=== PATIENT | female | born 1995 | race African-American/Black ===

== ENCOUNTER 2024-11-28 10:49 | Outpatient (CLI) | payer OTHER, SELFPAY ==
--- NOTE | ~2024-11-28 | US_ITS ---
EXAMINATION: US OB <= 14 weeks fetus DATE: 11/28/2024 11:16 INDICATION: Uncertain dating of TECHNIQUE: Real-time pelvic ultrasound utilizing both a transvaginal and transabdominal probe was pe rformed. The interpreting radiologist was not present for the study. COMPARISON: None. FINDINGS: There is a single living fetus with heart rate of 145 beats per minute (bpm). The placenta is p osterior and appears potentially low-lying although the cervix is not clearly defined. The amniotic f luid volume is subjectively normal. The following biometric data were obtained: BPD: 3.1 cm -> 15 weeks 5 days [place]-rump length: 9.0 cm -> 14 weeks 6 days Femur length: 1.7 cm -> 15 weeks 1 days IMPRESSION: 1. Single living fetus with heart rate of 145 bpm. 2. Gestational age by ultrasound of 15 weeks 2 day(s) +/- 1 week and 0 day(s) with ultrasound estimat ed date of delivery (CL) of 05/20/2025. Please correlate with clinical information or earlier ultraso unds for most accurate CL. 3. Posterior placenta which appears low-lying although the region of the cervix is suboptimally visua lized. Reviewed, dictated and finalized at location B. [employer] IMPRESSION: 1. Single living fetus with heart rate of 145 bpm. 2. Gestational age by ultrasound of 15 weeks 2 day(s) +/- 1 week and 0 day(s) w ith ultrasound estimated date of delivery (CL) of 05/20/2025. Please correlate with clinical information or earlier ultrasounds for most accurate CL. 3. Posterior placenta which appears low-lying although the region of the cervix is suboptimally visualized.
== END 2024-11-28 10:50 | disposition home or self-care (01) ==
PROVIDERS: PCP Obstetrics & Gynecology Gynecology; Visit Provider Obstetrics & Gynecology Gynecology
DX: Z36.87 Encounter for antenatal screening for uncertain dates (principal)
CPT/HCPCS: 76801

== ENCOUNTER 2025-01-02 15:56 | Outpatient (CLI) | payer OTHER, SELFPAY ==
--- NOTE | ~2025-01-02 | US_ITS ---
EXAMINATION: US OB /maternal detail DATE: 01/05/2025 10:32 CDT INDICATION: Anatomy scan TECHNIQUE: Real-time transabdominal obstetric ultrasound. FINDINGS: 2 para 0 There is a single intrauterine gestation in vertex presentation. The placenta is fundal, with the tip of the placenta more than 8 cm from the cervix. cardiac activity and movement is noted with a heart rate of 147 beats per minute. Anatomic parameters are as follows The bladder is visualized and is unremarkable. A three-vessel cord is present. Cord insertion is clearly demonstrated to be on the midline of the abdomen on the submitted images. Bilateral kidneys are present, symmetric and without hydronephrosis. The anterior and posterior margins of the diaphragm are continuous. The cervical, thoracic and lumbar spines are covered in their entirety. choroid plexi are visualized, and unremarkable. Lateral ventricles are visualized measuring 7.1 and 7.3 mm, respectively. The cerebellum is visualized measuring 20.4 mm, and is sonographically unremarkable. The cisterna magna measures 3.8 mm in anterior to posterior dimension (normal measurement is 2 to 10 mm). The nuchal fold measures 4.1 mm (greater than 6 mm is considered abnormal). Cine of the four-chamber heart is visualized and is anatomic. Both the right and left ventricular outflow tracts are identified and are unremarkable. Limited views of the arms, hands, legs and feet were performed and appear grossly unremarkable. Evaluation of the upper lip and nose demonstrate continuity. The following biometric data were obtained: Biparietal diameter (BPD): 4.5 cm; head circumference (HC): 17 cm; abdominal circumference (AC): 13.8 cm; femur length (FL): 3.2 cm. These measurements are concordant. Estimated weight is 298.6 g +/- 45 g, which correlates with the 12th percentile when 05/25/2025 i s used as estimated date of delivery. As single measurements, these parameters are each equal to the following estimated gestational ages: BPD: 19 weeks 4 days. HC: 19 weeks 4 days. AC: 19 weeks 2 days. FL: 19 weeks 6 days. estimated gestational age based solely on measurements from this exam is 19 weeks 4 days +/- 1 week 3 days. IMPRESSION: Single intrauterine gestation with an approximate gestational age of 19 weeks and 4 days. Estimated d ue date by ultrasound is 05/25/2025. All components of the anatomy scan were visualized, and are unremarkable (as detailed above). Reviewed, dictated and finalized at location A. IMPRESSION: Single intrauterine gestation with an approximate gestational age of 19 weeks a nd 4 days. Estimated due date by ultrasound is 05/25/2025. All components of the anatomy scan were visualized, and are unremarkable (as de tailed above).
== END 2025-01-02 15:57 | disposition home or self-care (01) ==
LOC: MICIMG 15:58
PROVIDERS: PCP Obstetrics & Gynecology Gynecology; Visit Provider Obstetrics & Gynecology Gynecology
DX: Z36.9 Encounter for antenatal screening, unspecified (principal); Z3A.19 19 weeks gestation of pregnancy
CPT/HCPCS: 76805

== ENCOUNTER 2025-05-29 12:32 | Outpatient (RCR) | payer OTHER, SELFPAY ==
[2025-05-26 16:40] VITALS: BP 105/58; PULSE 80
[2025-05-28 16:13] VITALS: BP 106/40; PULSE 86
--- NOTE | ~2025-05-29 | US_ITS ---
EXAMINATION: US OB BPP wo non-stress DATE: 05/26/2025 17:42 INDICATION: Decreased movements TECHNIQUE: Real-time pelvic ultrasound was performed. The interpreting radiologist was not present for the study. COMPARISON: 01/02/2025. FINDINGS: There is a single living fetus in vertex presentation. The placenta is posterior. cardiac activity and movement are demonstrated. heart rate is 142 beats per minute (bpm). FRANCIA is normal measuring 15.9 cm. Biophysical profile performed by the technologist: breathing (30 sec sustained breathing in 30 minutes): 2 out of 2 movement (3 gross body movements in 30 minutes): 2 out of 2 tone (one episode of zmqyivu-hgbfnlasj-xayrcqv limb movement): 2 out of 2 Amniotic fluid pocket (2 cm): 2 out of 2 Total score: 8 out of 8 IMPRESSION: 1. Single living intrauterine in vertex presentation with heart rate of 142 bpm. 2. Normal placenta. 3. Biophysical profile 8 out of 8. Reviewed, dictated and finalized at location O.
--- NOTE | ~2025-05-29 | US_ITS ---
EXAMINATION: US OB BPP wo non-stress DATE: 05/29/2025 14:18 CDT INDICATION: Evaluate amniotic fluid index. Biophysical profile. TECHNIQUE: Real-time transabdominal obstetric ultrasound. FINDINGS: 05/26/2025 There is a single living fetus in vertex presentation. The placenta is posterior without placenta previa. cardiac activity and movement is noted with a heart rate of 137 beats per minute. FRANCIA is normal measuring 15.9 cm. Biophysical profile: breathin of 2 movement: 2 of 2 tone: 2 of 2 Amniotic flud pocket: 2 of 2 Total score: 8 of 8 IMPRESSION: 1. Single living intrauterine in vertex presentation. 2: Total biophysical profile score of 8/8. 3: Normal FRANCIA measures 15.9 cm. Reviewed, dictated and finalized at location O.
--- NOTE | 2025-05-29 14:18 | PC.NURSE ---
1415- RN notified Dr. Darrell Sánchez of BPP and FRANCIA results. RN notified MD that patient is scheduled again on Sunday. MD gave orders for d/c.
== END 2025-06-06 11:27 | disposition other institution (70) ==
LOC: ANHOBOP 12:32
PROVIDERS: Visit Provider Obstetrics & Gynecology Gynecology
DX: O36.8130 Decreased fetal movements, third trimester, not applicable or unspecified (principal); O48.0 Post-term pregnancy; Z3A.40 40 weeks gestation of pregnancy
CPT/HCPCS: 59025; 76819

== ENCOUNTER 2025-05-30 18:05 | Observation (INO) | payer OTHER, SELFPAY ==
--- OUTSIDE RECORDS SUMMARY | 2025-05-30 20:55 | XMS_ITS | Clinical Summary ---
Author Organization [facility] Address [facility] [place] [address] Care Team Providers Care Fire Supervisor Name Role Phone None, Provider MD Primary Care Provider Unavaila ble Allergies No known active allergies Medications cholecalciferol (VITAMIN D-[address]) 25 mcg Tab tablet Take 1 tablet (1,000 Units total) by mouth daily. Active MAGNESIUM OR Take 200 mg by mouth daily. Active Ovando 3 1000 MG Cap Take 1 g by mouth daily. Active zinc gluconate 50 MG Tab Take 1 tablet (50 mg total) by mouth daily. Active ferrous sulfate, 65 mg elemental, 325 (65 FE) MG tablet Take 1 tablet (325 mg total) by mouth daily with breakfast. Active vitamin, low iron, 27-0.8 mg tablet Take 1 tablet by mouth daily. Active Active Problems Problem Noted Date Diagnosed Date ([facility]) 05/21/2025 Estimated Date of Delivery Comme nts Yes 05/24/2025 Based on Other B asis Encounters Date Type Department Care Team Description 05/21/2025 4:00 PM CDT - 05/21/2025 5:15 PM CDT Emergency [facility] [place] [address] Raul Carbajal MD Discharge Disposition: Home or Self Care (Routine Discharge) 05/21/2025 Travel 03/21/2025 8:05 AM CDT - 03/21/2025 11:59 PM CDT Hospital Encounter [facility] [address] Lorrie Tran MD Discharge Disposition: Home or Self Care (Routine Discharge) 03/21/2025 Orders Only [facility] [address] Lorrie Tran MD 03/21/2025 Travel 03/14/2025 8:30 AM CDT - 03/14/2025 11:59 PM CDT Hospital Encounter [facility] [address] Lorrie Tran MD Discharge Disposition: Home or Self Care (Routine Discharge) 03/14/2025 [facility] [place] [address] Lorrie Tran MD 03/14/2025 Travel from Last 3 Months Social History Tobacco Use Types Packs/Day Years Used Date Smoking Tobacco: Never Assessed Estimated Date of Delivery Comme nts Yes 05/24/2025 Based on Other B asis Sex and Gender Information Value Date Recorded Sex Assigned at Female 11/18/2024 11:52 AM R&D ENGINEER Legal Sex Female 9:39 AM R&D ENGINEER Gender Identity Female 05/21/2025 4:20 PM CDT Sexual Orientation Straight 05/21/2025 4: 20 PM CDT Last Filed Vital Signs Vital Sign Reading Time Taken Comments Blood Pressure 112/68 05/21/2025 4:11 PM CDT Pulse 59 05/21/2025 5:10 PM CDT Temperature 37.1 C (98.7 F) 05/21/2025 4:15 PM CDT Respiratory Rate 16 05/21/2025 4:15 PM CDT Oxygen Saturation 99% 05/21/2025 4:15 PM CDT Inhaled Oxygen Concentration - - Weight 83 kg (183 lb) 05/21/2025 4:11 PM CDT Height 170.2 cm (5' 7) 05/21/2025 4:11 PM CDT Body Mass Index 28.66 05/21/2025 4:11 PM CDT Plan of Treatment Health Maintenance Due Date Last Done Comments Cervical Cancer Screening Pa p Smear (Age 21 to 29) Every 3 Years 1996 Cervical Cancer Screening 1996 Annual Physical 12/07/1999 Hepatitis C 2014 DTaP, Tdap and Td Vaccines ( 1 - Tdap) 12/07/2015 Hepatitis B Vaccines (1 of 3 - 19+ 3-dose series) 12/07/2015 HPV Vaccines (1 - 3-dose SCD M series) 12/07/2023 COVID-19 Vaccine ( - 2023-2 5 season) 2024 Meningococcal B Vaccine Aged Out No l onger eligible based on patient's age to complete this topic Meningococcal Vaccine Aged Out No matt alfredo eligible based on patient's age to complete this topic Pneumococcal Vaccine: Pediat rics (0 to 5 Years) and At-Risk Patients (6 to 49 Years) Aged Out No longer eligible b ased on patient's age to complete this topic RSV Immunization or 60+ Years (No Doses Required) Completed RSV Immunizations Under 20 Months Aged Out No longer eligible based on patient's age to complete this topic Procedures Procedure Name Priority Date/Time Associated Diagnosis Comments NONSTRESS TEST STAT 05/21/2025 5:12 PM CDT HC URINALYSIS AUTO W/O MICRO STAT 05/21/2025 4:46 PM CDT HC GLUCOSE TOLERANCE ADDL SPEC TIMED 03/21/2025 12:18 PM CDT GLUCOSE TOLERANCE 2 HR OB TIMED 03/21/2025 11:20 AM CDT GLUCOSE TOLERANCE 1 HR OB TIMED 03/21/2025 10:19 AM CDT GLUCOSE BLOOD, QNT Routine 03/21/2025 8: 35 AM CDT Abnormal glucose in , antepartum (HHS/HCC) GLUCOSE, GESTATIONAL SCREEN Routine 03/14/2025 9:40 AM CDT care ([facility]) SYPHILIS AB (DIAGNOSTIC) WITH CASCADING REFLEX Routine 03/14/2025 9:40 AM CDT care ([facility]) VITAMIN D, 25 OH Routine 03/14/2025 9:40 AM CDT care ([facility]) HIV 1 ANTIGEN(S), WITH HIV-1 AND HIV-2 ANTIBODIES Routine 03/14/2025 9:40 AM CDT care ([facility]) HEMOGLOBIN AND HEMATOCRIT Routine 03/14/2025 9:40 AM CDT care ([facility]) from Last 3 Months Results * nonstress test (05/21/2025 5:12 PM CDT) Narrative Raul Carbajal MD - 05/21/2025 5:12 PM CDT Raul Carbajal MD 05/21/2025 5:13 PM Non-Stress Test Indication: decreased movement Gestational Age: 39w4d Baseline: 130 bpm Variability: moderate Accelerations: present Decelerations: absent TOCO: occasional/rare contraction Interpretation: reassuring/reactive NST Recommendation(s): OK for discharge, feeling FM after zofran & hydration PO Comments: na Start: 1608 End: 1710 I personally reviewed the non-stress test strips RAUL CARBAJAL MD Raul Carbajal MD OB GYNE ORDERABLES Final R esult * URINALYSIS (05/21/2025 4:46 PM CDT) SPECIMEN TYPE URINE CLEAN CATCH 05/21/2025 4:46 PM CDT [facility] COLOR (U) LIGHT YELLOW 05/21/2025 4:58 PM CDT [facility] TRANSPARENCY CLEAR 05/21/2025 4:58 PM CDT [facility] SPECIFIC GRAVITY (U) 1.017 1.001 - 1.030 05/21/2025 4:58 PM CDT [facility] U PH 7.5 5.0 - 9.0 05/21/2025 4:58 PM CDT [facility] LEUKOCYTES (U) NEGATIVE NEGATIVE 05/21/2025 4:58 PM CDT [facility] NITRITES NEGATIVE NEGATIVE 05/21/2025 4:58 PM CDT [facility] PROTEIN RANDOM (U) NEGATIVE <30 MG/DL 05/21/2025 4:58 PM CDT [facility] GLUCOSE (U) NORMAL NORMAL MG/DL 05/21/2025 4:58 PM CDT [facility] KETONES MG/DL (U) NEGATIVE NEGATIVE MG/DL 05/21/2025 4:58 PM CDT [facility] UROBILINOGEN NORMAL NORMAL MG/DL 05/21/2025 4:58 PM CDT [facility] BILIRUBIN (U) NEGATIVE NEGATIVE MG/DL 05/21/2025 4:58 PM CDT [facility] BLOOD (U) NEGATIVE NEGATIVE 05/21/2025 4:58 PM CDT [facility] URINE SPECIMEN OBTAINED BY CLEAN CATCH PROCEDURE / Unknown 05/21/2025 4:46 PM CDT us Raul Carbajal MD URINE ORDERABLES Final Res ult [facility] [address] [place] [address], * GLUCOSE TOLERANCE TEST, 3HR OB (03/21/2025 12:18 PM CDT) GLUCOSE 3 HR 92 mg/dL 03/21/2025 12:39 PM CDT [facility] 03/21/2025 12:1 8 PM CDT us Lorrie Tran MD LABORATORY Final Res ult [facility] [address] [place] [address], [place] [phone] * GLUCOSE TOLERANCE 2 HR OB (03/21/2025 11:20 AM CDT) GLUCOSE 2 HR 118 mg/dL 03/21/2025 11:42 AM CDT [facility] 03/21/2025 11:2 0 AM CDT Lorrie Tran MD LABORATORY Final Res ult Performing Organization Address City/[facility]/ZIP Co de Phone Number [facility] [address] [place] [address], [place] [phone] * GLUCOSE TOLERANCE 1 HR OB (03/21/2025 10:19 AM CDT) GLUCOSE 1 HR 164 mg/dL 03/21/2025 11:06 AM CDT [facility] 03/21/2025 10:1 9 AM CDT Lorrie Tran MD LABORATORY Final Res ult [facility] [address] [place] [id number], [place] [phone] * GLUCOSE BLOOD, QNT (03/21/2025 8:35 AM CDT) GLUCOSE 84 70 - 99 MG/DL 03/21/2025 9:12 AM CDT [facility] 03/21/2025 8:35 AM CDT us Lorrie Tran MD LABORATORY Final Res ult Performing Organization Address City/[facility]/ZIP Co de Phone Number [facility] [address] [place] [address], * SYPHILIS AB (DIAGNOSTIC) WITH CASCADING REFLEX (03/14/2025 9:40 AM CDT) SYPHILIS IGG IGM AB NON-REACTI VE NON-REACTI VE 03/14/2025 12:13 PM CDT [facility] Comment: No serologic evidence of syphilis. No follow-up necessary unless clinically indicated. 03/14/2025 9:40 AM CDT Lorrie Tran MD LABORATORY Final Res ult Performing Organization Address [facility] Co de Phone Number [facility] [address] [place] [phone], * (ABNORMAL) GLUCOSE, GESTATIONAL SCREEN (03/14/2025 9:40 AM CDT) Pathologist [facility] AM[place] GIVEN 50 g 03/14/2025 11:37 AM CDT [facility] GLUCOSE 1 HOUR POST DOSE 176(H) <140 mg/dL 03/14/2025 11:37 AM CDT [facility] 03/14/2025 9:40 AM CDT Lorrie Tran MD LABORATORY Final Res ult Performing Organization Address City/[facility]/ZIP Co de Phone Number [facility] [address] [place] [address], * HIV 1 ANTIGEN(S), WITH HIV-1 AND HIV-2 ANTIBODIES (03/14/2025 9:40 AM CDT) Pathologist [facility] HIV 1/2 AB+ HIV1 P24 AG NON-REACTI VE NON-REACTI VE 03/14/2025 12:28 PM CDT [facility] 03/14/2025 9:40 AM CDT Lorrie Tran MD LABORATORY Final Res ult Performing Organization Address City/[facility]/ZIP Co de Phone Number [facility] [address] [place] [address], [place] [phone] * (ABNORMAL) HEMOGLOBIN AND HEMATOCRIT (03/14/2025 9:40 AM CDT) Pathologist [facility] HGB 11.9(L) 12.0 - 16.0 G/DL 03/14/2025 11:07 AM CDT [facility] HCT 35.4(L) 38.0 - 48.0 % 03/14/2025 11:07 AM CDT [facility] 03/14/2025 9:40 AM CDT Lorrie Tran MD LABORATORY Final Res ult Performing Organization Address [facility] Co de Phone Number [facility] [address] [place] [address], [place] [phone] * VITAMIN D, 25 OH (03/14/2025 9:40 AM CDT) VITAMIN D 25 HYDROXY S/P/B 41 30 - 100 NG/ML 03/14/2025 12:13 PM CDT [facility] Comment: INTERPRETATION DEFICIENT <20 INSUFFICIENT 20-29 SUFFICIENT 30-100 03/14/2025 9:40 AM CDT Lorrie Tran MD LABORATORY Final Res ult [facility] [address] [place] [address], from Last 3 Months Insurance Care Teams Fire Supervisor Relationship Specialty Start Date End Date None, Provider, MD PCP - General UNKNOWN PHYSICIAN SPECIALTY 03/14/25
--- NOTE | 2025-06-02 03:09 | PM.OBTRLD ---
OB - Triage/Final Diagnosis Visit Information Reason for evaluation: threatened labor Comments/Additional reasons for admission: I have assessed the risk for this patient, Aissatou Cat, and determined that she would benefit from observation care.
== END 2025-05-30 22:33 | disposition home or self-care (01) ==
PROVIDERS: Admitting Provider Obstetrics & Gynecology; Visit Provider Obstetrics & Gynecology
DX: O47.1 False labor at or after 37 completed weeks of gestation (principal); Z3A.40 40 weeks gestation of pregnancy
CPT/HCPCS: G0378; G0379

== ENCOUNTER 2025-05-31 04:29 | Inpatient (IN) | payer OTHER, SELFPAY ==
[2025-05-31] VITALS (65 sets, daily range): BP systolic 91–140; BP diastolic 55–99; PULSE 62–182; RESP 16; TEMP 36.4–37.1; O2SAT 96–100; BMI 27.9
[2025-05-31 05:14] LABS: Hematocrit 41.3 % (37.0-47.0); Hemoglobin 13.8 g/dL (12.0-15.0); Immature Granulocyte Percent A 0.6 % (0-0.5); Lymphocytes Absolute Auto 2.66 K/mm3 (0.9-3.2); Mean Corpuscular HGB Conc 33.4 g/dl (32-36); Mean Corpuscular Hemoglobin 32.9 pg (26-34); Mean Corpuscular Volume 98.6 fl (80-100); Nucleated Red Blood Cells Absolute Auto 0.000 K/mm3 (0.0-0.012); Nucleated Red Blood Cells Perc 0.0 % (0.0-0.2); Platelet Count Result 147 k/mm3 (150-375); Red Blood Count 4.19 M/mm3 (4.2-5.4); White Blood Count 14.2 K/mm3 (4.5-10.0)
[2025-05-31] MEDS: LACTATED RINGERS 1,000 ML 125 ML IV CONT (05:17)
[2025-05-31] MEDS: ONDANSETRON INJ 4 MG/2 ML VIAL IV PUSH ×2 (05:18→10:52)
[2025-05-31] MEDS: FAMOTIDINE 20 MG/2 ML VIAL IV PUSH (05:18)
--- NOTE | 2025-05-31 05:20 | LDADM ---
This patient, Aissatou Cat, was admitted to Labor/Delivery/Recovery 105 on 05/31/25 at 04:29. Plans for labor, pain management and were discussed with patient. Patient/family oriented to hospital policies and general routines including ID bracelet, bed and alarms, visiting hours, pain management, procedures, bathroom and other care routines, personal items, smoking policy, room service/diet and guest tray routines, infant security routines, and visiting hours. Patient/Family are encouraged to report perceived risks to care and to ask questions if they do not understand what they are told or what they should do. See OBIX for further documentation.
[2025-05-31 06:03] LABS: Syphilis IgG/IgM Antibody Non-Reactive (Nonreactive)
--- NOTE | 2025-05-31 06:12 | PM.IMHP ---
H&P: HPI History of Present Illness Date/Time: 05/31/25 06:12 Chief Complaint: Labor at 41 weeks Narrative: This is a 29-year-old 2 para 0 whose last menstrual period gives an EDC of 05/24/2025. She has apparently had an unremarkable . She is 41 weeks today. She was then oral air and early labor went home and has returned. She is negative for group B strep passed her diabetic Review of Systems Review of Systems: All systems reviewed & are unremarkable except as noted in HPI and below PMFSH Family History Family History Other No pertinent family history Social History Social History Smoking status: Former smoker Tobacco type: cigarettes and e-cigarettes/vaping Second hand tobacco smoke exposure: No Substance use: never Lack of Transportation: No Lack of Food: Never True Current Housing: I Have Housing Concerned About Future Housing: No Difficulty Paying Gas/Electric Bills: No Difficulty Paying for Meds: No Currently Unemployed: No Education: High School Diploma/GED Difficulty w/ Childcare or Family Care: No Spiritual care concerns: No Meds Home Medications and Allergies Home Medications ?Medication ?Instructions ?Recorded ?Confirmed ?Type vit no.95-ferrous 1 tablet PO DAILY 04/25/25 05/31/25 History fumarate 28 mg-folic acid 800 mcg tablet () Allergies Allergy/AdvReac Type Severity Reaction Status Date / Time No Known Allergies Allergy Verified 05/31/25 05:42 Vital Signs Vital Signs - 24 hr 05/31/25 04:45 Pulse Rate 85 Blood Pressure 120/84 Exam Const: General: cooperative, healthy appearing and comfortable Nutritional Appearance: average body habitus Orientation/consciousness: oriented to person, oriented to place and oriented to time Resp: Effort & Inspection: normal respiratory effort Cardio: Rate: regular rate Rhythm: regular rhythm Heart sounds: S1 normal heart sound present and S2 normal heart sound present GI: Inspection: normal to inspection (Gravid soft uterus) : External Female Exam: normal external appearance Speculum Exam - Vagina: normal appearance of the vagina Speculum Exam - Cervix: normal appearance of the cervix (Cervix 3/100/2. AROM with meconium. FHTs reassuring) H&P: Results Labs Labs: Short CBC 05/31/25 Range/Units 05:08 WBC 14.2 H (4.5-10.0) K/mm3 Hgb 13.8 (12.0-15.0) g/dL Hct 41.3 (37.0-47.0) % Plt Count 147 L (150-375) k/mm3 Assessment and Plan Assessment and plan (1) Term : Code(s): Z34.90 - Encounter for supervision of normal , unspecified, unspecified trimester Status: Acute Plan Spontaneous vaginal delivery expected. She is an epidural candidate. Peds will be made of a meconium
--- NOTE | 2025-05-31 06:22 | WPDANESEPP ---
Anes - Eval Pre Procedure Procedure: Labor epidural Date/Time: 05/31/25 06:22 Surgeon: Chelsea Preop Diagnosis: Abdominal pain with contractions Pre Op Diagnosis: Labor Patient Data Age: 29 Gender: F Height: 1.7 m Weight: 81 kg Last Vital Signs Pulse 85 05/31/25 04:45 BP 120/84 05/31/25 04:45 Allergies Allergy/AdvReac Type Severity Reaction Status Date / Time No Known Allergies Allergy Verified 05/31/25 05:42 Home Medications ?Medication ?Instructions ?Recorded ?Confirmed ?Type vit no.95-ferrous 1 tablet PO DAILY 04/25/25 05/31/25 History fumarate 28 mg-folic acid 800 mcg tablet () Laboratory Tests 05/31/25 05:08 WBC 14.2 H K/mm3 (4.5-10.0) RBC 4.19 L M/mm3 (4.2-5.4) Hgb 13.8 g/dL (12.0-15.0) Hct 41.3 % (37.0-47.0) MCV 98.6 fl (80-100) MCH 32.9 pg (26-34) MCHC 33.4 g/dl (32-36) RDW 12.8 % (11.5-14.5) Plt Count 147 L k/mm3 (150-375) MPV 10.8 H fl (7.4-10.4) Immature Gran % (Auto) 0.6 H % (0-0.5) Neut % (Auto) 72.6 % (45.5-73.1) Lymph % (Auto) 18.7 % (18.3-44.2) [place] % (Auto) 5.8 % (2.6-8.5) Eos % (Auto) 1.9 % (0-4.4) Baso % (Auto) 0.4 % (0.2-1.2) Lymph # (Auto) 2.66 K/mm3 (0.9-3.2) [place] # (Auto) 0.8 H K/mm3 (0.1-0.6) Eos # (Auto) 0.3 K/mm3 (0-0.3) Baso # (Auto) 0.1 K/mm3 (0.0-0.1) Abs Immat Gran (auto) 0.09 H K/mm3 (0.00-0.031) Absolute Neuts (auto) 10.3 H K/mm3 (1.3-6.7) Absolute Nucleated RBC 0.000 K/mm3 (0.0-0.012) Nucleated RBC % 0.0 % (0.0-0.2) Syphilis IgG/IgM Ab Non-reactive (Nonreactive) Blood Type O Positive Antibody Screen Negative : gestational age HCG: positive Patient hx anesthesia problems: none Family hx anesthesia problems: none Results Review: All pre-operative results and documents have been reviewed as part of the pre-operative evaluation. FORMERLY [facility], [facility] Past Medical History Medical History (Updated 05/31/25 @ 06:22 by Rene León Jr., CRNA) Term Family History Family History Other No pertinent family history Social History Social History Smoking status: Former smoker Tobacco type: cigarettes and e-cigarettes/vaping Second hand tobacco smoke exposure: No Substance use: never Lack of Transportation: No Lack of Food: Never True Current Housing: I Have Housing Concerned About Future Housing: No Difficulty Paying Gas/Electric Bills: No Difficulty Paying for Meds: No Currently Unemployed: No Education: High School Diploma/GED Difficulty w/ Childcare or Family Care: No Spiritual care concerns: No Exam Day of Procedure 05/31/25 06:22 Patient weight: overweight
[2025-05-31] MEDS: OXYTOCIN 30 UNITS/NS 500 ML 30 UNITS/500 ML BAG 999 UNITS IV CONT (13:58)
--- NOTE | 2025-05-31 14:08 | P.PCNOB_ITS ---
OB - Vaginal Delivery Note Procedure Delivery date: 05/31/25 Induction method: None Delivery augmentation: Rupture of Membranes Delivery monitor: External FHT and External Uterine Route of delivery: Episiotomy description: None Laceration Description: Perineal - 2nd Degree Delivery repair: vicryl Specimen: No Quantitative Blood Loss (ml): 62 Anesthesia type: Local Disposition: Floor Complications: No immediate complications Narrative: Patient 40 weeks gestation labor artificial rupture membranes a she is 3-4 she progressed 1st do stage of labor was unable to get an epidural and delivered ba by was not in attendance. Placenta delivered intact spontaneously 20 of Pitocin placed IV to help firm uterus after inspecting vagina f second-degree laceration was noted perineum closed with running Vicryl QBL was 62cc all sponge,, instrument counts were correct. Immediate complications Baby Date of : 05/31/25 Time of : 13:40 Gestational Age by Date: 41 Infant gender: Female presentation: vertex Placenta delivery description: Spontaneous Cord Vessel Description: 3 Vessels score one minute: 8 score five minutes: 9
--- NOTE | 2025-05-31 14:10 | P.DS_ITS ---
DS: Admitting Diagnosis Discharge Date 06/01/2025 Admitting Diagnosis Term DS: Discharge Diagnosis Discharge Diagnosis (1) Term : Code(s): Z34.90 - Encounter for supervision of normal , unspecified, unspecified trimester Status: Acute DS: Summary Hospital Course Reason for hospitalization: Patient admitted 41 weeks gestation in active labor and underwent spontaneous vaginal delivery Hospital Course: Patient's hospital course unremarkable. Straight afebrile. She was up, voiding without difficulty, ambulated, and generally without complaints. Time Spent with Patient Time attestation: Total time spent providing and/or coordinating discharge services: Exam Const: General: cooperative, healthy appearing and comfortable Nutritional Appearance: average body habitus Orientation/consciousness: oriented to person, oriented to place and oriented to time Resp: Effort & Inspection: normal respiratory effort Cardio: Rate: regular rate Rhythm: regular rhythm Heart sounds: S1 normal heart sound present and S2 normal heart sound present GI: Inspection: normal to inspection (Gravid soft uterus) : External Female Exam: normal external appearance Speculum Exam - Vagina: normal appearance of the vagina Speculum Exam - Cervix: normal appearance of the cervix (Cervix 3/100/2. AROM with meconium. FHTs reassuring) DS: Data Data Completed and Pending Labs on day of discharge: Labs from last 24 hours 05/31/25 05:08 WBC 14.2 H RBC 4.19 L Hgb 13.8 Hct 41.3 MCV 98.6 MCH 32.9 MCHC 33.4 RDW 12.8 Plt Count 147 L MPV 10.8 H Immature Gran % (Auto) 0.6 H Neut % (Auto) 72.6 Lymph % (Auto) 18.7 [place] % (Auto) 5.8 Eos % (Auto) 1.9 Baso % (Auto) 0.4 Lymph # (Auto) 2.66 [place] # (Auto) 0.8 H Eos # (Auto) 0.3 Baso # (Auto) 0.1 Abs Immat Gran (auto) 0.09 H Absolute Neuts (auto) 10.3 H Absolute Nucleated RBC 0.000 Nucleated RBC % 0.0 Syphilis IgG/IgM Ab Non-reactive Blood Type O Positive Antibody Screen Negative Discharge Plan Discharge Attending physician on discharge: Parish Ryan Discharging Clinician: Parish Ryan Patient Disposition: Home Activity: may shower, no straining and pelvic rest Diet: heart healthy Wound Care Instructions: follow printed instructions Patient Instructions: Antibiotic Form Patient Language: Urdu Stand Alone Forms: General Discharge Information Follow-up/Referrals: Lorrie Tran MD [Physician, [facility]] Discharge Medications: Continued PNV [id number] [] 28 mg iron- 800 mcg tablet 1 tablet PO DAILY Date of admission: 05/31/25 04:29 Primary Care Provider: PHYSICIAN,LOCAL [place] [employer] Admitting Provider: Lorrie Tran Attending physician on admission: Lorrie Tran Condition: Stable
[2025-05-31] MEDS: OXYTOCIN 30 UNITS/NS 500 ML 30 UNITS/500 ML BAG 125 UNITS IV CONT (14:31)
[2025-05-31] MEDS: ACETAMINOPHEN 325 MG TABLET 650 MG PO (14:53)
[2025-05-31] MEDS: IBUPROFEN 600 MG TABLET PO (14:55)
[2025-05-31] MEDS: WITCH HAZEL 40 PADS 1 PAD TOPICAL (15:51)
[2025-05-31] MEDS: BENZOCAINE 20% AER SPR (*SP) 56 GM CAN 1 SPRAY TOPICAL (15:51)
--- NOTE | 2025-05-31 16:15 | PC.NURSE ---
Patient transferred to post room #111 via wheelchair. Support person present. Oriented to unit, room, information board, rooming in, admission packet and security measures. Patient verbalizes understanding.
[2025-06-01 05:26] LABS: Hematocrit 36.7 % (37.0-47.0); Hemoglobin 12.3 g/dL (12.0-15.0)
[2025-06-01] MEDS: IBUPROFEN 600 MG TABLET PO (05:28)
[2025-06-01] MEDS: ACETAMINOPHEN 325 MG TABLET 650 MG PO (05:28)
[2025-06-01 07:00] VITALS: BP 96/63; PULSE 64; RESP 16; TEMP 36.7; O2SAT 98
[2025-06-01 07:01] VITALS: PULSE 67; O2SAT 97
--- NOTE | 2025-06-01 08:39 | P.PNOB_ITS ---
OB - PN: Subj Subjective Date/time seen: 06/01/25 08:39 Patient comments: no complaints, pain well controlled and tolerating diet Cushing baby status: doing well OB - PN: Obj Data Labs 06/01/25 05:17 Labs: Laboratory Results - last 24 hr 06/01/25 05:17 Hgb 12.3 Hct 36.7 L OB - PN A/P Assessment and Plan (1) Term : Code(s): Z34.90 - Encounter for supervision of normal , unspecified, unspecified trimester Status: Acute Plan home Plan Comments: home Time Spent With Patient Time: Total time spent is greater than 50% in coordination of care (as documented) at patient's floor/unit and/or counseling patient: Review of Systems 2 Review of Systems: All systems reviewed & are unremarkable except as noted in HPI and below Exam 2 Const: General: cooperative, healthy appearing and comfortable Nutritional Appearance: average body habitus Orientation/consciousness: oriented to person, oriented to place and oriented to time Resp: Effort & Inspection: normal respiratory effort Cardio: Rate: regular rate Rhythm: regular rhythm Heart sounds: S1 normal heart sound present and S2 normal heart sound present GI: Inspection: normal to inspection (Gravid soft uterus) : External Female Exam: normal external appearance Speculum Exam - Vagina: normal appearance of the vagina Speculum Exam - Cervix: normal appearance of the cervix (Cervix 3/100/2. AROM with meconium. FHTs reassuring)
[2025-06-01] MEDS: MULTIVIT/MIN/PREN/FOL AC/IRON TABLET 1 TAB PO (09:39)
[2025-06-01] MEDS: DOCUSATE SODIUM 100 MG CAPSULE PO (09:39)
--- NOTE | 2025-06-01 12:40 | PC.NURSE ---
Patient viewed the discharge video Mother & Baby Care, The First Two Weeks. Patient was given the opportunity and encouraged to ask questions. Patient verbalized understanding of information shared and has been given the mother/baby guide for home reference.
[2025-06-02 08:23] VITALS: BP 109/60; PULSE 66; RESP 18; TEMP 36.9; O2SAT 100
== END 2025-06-01 15:55 | disposition home or self-care (01) | DRG 807 ==
LOC: ANHLDR 06-03 08:13 → ANHOB2 06-03 08:13 → ANHOBPP 06-03 08:13
PROVIDERS: Admitting Provider Obstetrics & Gynecology; Visit Provider Obstetrics & Gynecology
DX: O77.0 Labor and delivery complicated by meconium in amniotic fluid (principal); Z37.0 Single live birth; Z3A.41 41 weeks gestation of pregnancy; O70.1 Second degree perineal laceration during delivery
CPT/HCPCS: 36415; 85014; 85018; 85025; 86593; 86850; 86900; 86901; A9270; J2405; J2590; J2795; J7120